=== PATIENT | female | born 2000 | race American Indian/Alaskan Native ===

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

== ENCOUNTER 2020-09-02 17:30 | Emergency (ER) | payer MEDICAID ==
--- NOTE | 2020-09-02 19:32 | Event Note ---
ED Screening Note Date of service: 09/02/20 Time: 19:31 ED Screening Note: 20-year-old female patient presents to the emergency department with complaints of abdominal pain, nausea, vomiting, and diarrhea starting 2 days ago. No known sick contacts. No current steroid or antibiotic use. No recent travel. Pain is localized to the suprapubic area. No history of prior abdominal surgeries. Last menstrual cycle was August 04. General: Awake, appropriately interactive, no acute distress. Neck: Supple. Full range of motion intact. Cardiovascular: Normal peripheral perfusion. Pulmonary: No respiratory distress. Patient is speaking normally without use of accessory muscles. Skin: No apparent rashes or lesions. Neurological: No facial asymmetry. Speech is clear. Follows commands. Patient is alert and oriented. Musculoskeletal: Moves all four extremities spontaneously with normal range of motion. Psych: Cooperative. Appropriate mood and affect. I have greeted and performed a focused rapid initial assessment of this patient. A comprehensive ED assessment and evaluation of the patient, analysis of all test results, and completion of the medical decision-making process will be conducted by additional ED providers. This initial assessment/diagnostic orders/clinical plan/treatment(s) is/are subject to change based on patients health status, clinical progression and re-assessment. Further treatment and workup at subsequent clinical provider's discretion. Patient/guardian urged not to elope from the ED as their condition may be serious if not clinically assessed and managed.
[2020-09-02 20:00] VITALS: BP 122/81
[2020-09-02 20:17] LABS: Basophils % (Auto) 0.5 % (0.0-1.8); Hematocrit 40.2 % (30.3-42.9); Hemoglobin 13.1 gm/dl (10.1-14.3); Lymphocytes % (Auto) 31.3 % (13.4-35.0); Mean Corpuscular HGB Conc 33 % (30-34); Mean Corpuscular Volume 80 fl (79-97); Monocytes # (Auto) 0.2 K/mm3 (0.0-0.8); Monocytes % (Auto) 6.2 % (0.0-7.3); Platelet Count 162 K/mm3 (140-440); Red Cell Distribution Width 14.8 % (13.2-15.2)
[2020-09-02 20:35] LABS: Alanine Aminotransferase 35 units/L (7-56); Albumin 3.9 g/dL (3.9-5); BUN/Creatinine Ratio 13; Blood Urea Nitrogen 12 mg/dL (7-17); Calcium 8.8 mg/dL (8.4-10.2); Hemolysis Index 42
[2020-09-02 21:50] LABS: Bilirubin,Urine NEG (Negative); Blood,Urine LG (Negative); Color,Urine Yellow (Yellow); Mucus,Urine FEW /HPF; Protein,Urine >500 mg/dL (Negative); RBC,Urine < 1.0 /HPF (0.0-6.0); Urobilinogen,Urine < 2.0 mg/dL (<2.0)
[2020-09-02] MEDS ORDERED: SODIUM CHLORIDE 0.9% 1000 ML 1,000 ML IV ONE (22:39)
[2020-09-02] MEDS ORDERED: HYOSCYAMINE SUBL 0.125 MG TAB SL ONE (22:39)
--- NOTE | 2020-09-02 22:50 | Emergency Department Report ---
ED N/V/D HPI - General Chief complaint: Nausea/Vomiting/Diarrhea Stated complaint: STOMACH VIRUS Time Seen by Provider: 09/02/20 21:35 Source: patient Mode of arrival: Ambulatory Limitations: No Limitations - History of Present Illness Initial comments: Dana Saucedo to 3-day history of nausea vomiting diarrhea associated with lower leg pain of unknown etiology states she is able to keep food down but is vomiting a yellow/thin type liquid with a sour acidic taste to the posterior pharynx in the chest region burn MD complaint: nausea, vomiting, diarrhea -: Gradual Description of Vomiting: other (Increased symptoms) Associated Abdominal Pain: No Severity: mild Quality: aching, dull Improves with: none Worsens with: none Associated Symptoms: denies other symptoms - Related Data Previous Rx's Medication Instructions Recorded Last Taken Type Benzonatate [Tessalon Perles] 100 mg PO Q8HR #20 capsule 12/30/19 Unknown Rx Desloratadine/Pseudoephedrine 1 each PO BID #10 tbmp.12hr 12/30/19 Unknown Rx [Clarinex-D 12 Hour Tablet] predniSONE [Deltasone] 20 mg PO QDAY #5 tab 12/30/19 Unknown Rx Hyoscyamine Subl [Levsin Sl 0.125 0.125 mg SL Q6HR PRN #20 tab 09/02/20 Unknown Rx TAB] Ondansetron [Zofran ODT TAB] 8 mg PO Q12HR #14 tab.rapdis 09/02/20 Unknown Rx Albuterol Mdi (or & Nicu Only) 2 puff IH QID PRN #8.5 gram 09/07/20 Unknown Rx [ProAir HFA Inhaler] Cetirizine HCl [All Day Allergy 10 mg PO DAILY 14 Days #14 capsule 09/07/20 Unknown Rx Relief] Fluticasone [Flonase] 1 spray NS QDAY 14 Days #1 bottle 09/07/20 Unknown Rx Hydrocodone/Chlorphen P-Stirex 5 ml PO BID 10 Days #115 ml 09/07/20 Unknown Rx [Tussionex Pennkinetic Susp] Allergies Allergy/AdvReac Type Severity Reaction Status Date / Time No Known Allergies Allergy Unverified 12/30/19 12:15 ED Review of Systems ROS: Stated complaint: STOMACH VIRUS Other details as noted in HPI Comment: All other systems reviewed and negative ED Past Medical Hx - Past Medical History Previous Medical History?: No - Surgical History Past Surgical History?: No - Social History Smoking Status: Never Smoker Substance Use Type: None - Medications Home Medications: Home Medications Medication Instructions Recorded Confirmed Last Taken Type Benzonatate [Tessalon Perles] 100 mg PO Q8HR #20 capsule 12/30/19 Unknown Rx Desloratadine/Pseudoephedrine 1 each PO BID #10 tbmp.12hr 12/30/19 Unknown Rx [Clarinex-D 12 Hour Tablet] predniSONE [Deltasone] 20 mg PO QDAY #5 tab 12/30/19 Unknown Rx Hyoscyamine Subl [Levsin Sl 0.125 0.125 mg SL Q6HR PRN #20 tab 09/02/20 Unknown Rx TAB] Ondansetron [Zofran ODT TAB] 8 mg PO Q12HR #14 tab.rapdis 09/02/20 Unknown Rx Albuterol Mdi (or & Nicu Only) 2 puff IH QID PRN #8.5 gram 09/07/20 Unknown Rx [ProAir HFA Inhaler] Cetirizine HCl [All Day Allergy 10 mg PO DAILY 14 Days #14 capsule 09/07/20 Unknown Rx Relief] Fluticasone [Flonase] 1 spray NS QDAY 14 Days #1 bottle 09/07/20 Unknown Rx Hydrocodone/Chlorphen P-Stirex 5 ml PO BID 10 Days #115 ml 09/07/20 Unknown Rx [Tussionex Pennkinetic Susp] ED Physical Exam - General Limitations: No Limitations General appearance: alert, in no apparent distress - Head Head exam: Present: atraumatic, normocephalic - Eye Eye exam: Present: normal appearance, PERRL, EOMI - ENT ENT exam: Present: mucous membranes moist - Neck Neck exam: Present: normal inspection, full ROM - Respiratory Respiratory exam: Present: normal lung sounds bilaterally. Absent: respiratory distress - Cardiovascular Cardiovascular Exam: Present: regular rate, normal rhythm. Absent: systolic murmur, diastolic murmur, rubs, gallop - GI/Abdominal GI/Abdominal exam: Present: soft, normal bowel sounds. Absent: guarding, rebound, hyperactive bowel sounds, hypoactive bowel sounds - Extremities Exam Extremities exam: Present: normal inspection - Back Exam Back exam: Present: normal inspection - Neurological Exam Neurological exam: Present: alert, oriented X3 - Psychiatric Psychiatric exam: Present: normal affect, normal mood - Skin Skin exam: Present: warm, dry, intact, normal color. Absent: rash ED Course Vital Signs 09/02/20 09/03/20 19:32 03:50 Temperature 98.4 F Pulse Rate 123 H 88 Respiratory 20 17 Rate Blood Pressure 122/81 O2 Sat by Pulse 96 99 Oximetry ED Medical Decision Making - Lab Data Result diagrams: 09/02/20 19:41 09/02/20 19:41 - Medical Decision Making Patient presents to the emergency department with nausea, vomiting, diarrhea, differential diagnosis includes possible acute gastroenteritis. Abdominal examination without peritoneal signs. Currently patient is euvolemic without evidence of dehydration. No evidence of surgical abdomen or other acute medical emergency including bowel obstruction, viscus perforation, vascular catastrophe, appendicitis, cholecystitis at this time. Presentation not consistent with other acute emergent causes of vomiting and diarrhea at this time. No indication for abdominal imaging Plan supportive care, oral/IV rehydration, antiemetics and reassess Critical care attestation.: If time is entered above; I have spent that time in minutes in the direct care of this critically ill patient, excluding procedure time. ED Disposition Clinical Impression: Nausea vomiting and diarrhea Disposition: DC-01 TO HOME OR SELFCARE Is pt being admited?: No Does the pt Need Aspirin: No Condition: Stable Instructions: Diarrhea, Adult, Rotavirus Infection, Adult, Nausea and Vomiting, Adult, Probiotics Prescriptions: Hyoscyamine Subl [Levsin Sl 0.125 TAB] 0.125 mg SL Q6HR PRN #20 tab PRN Reason: abdominal cramps and spasms Ondansetron [Zofran ODT TAB] 8 mg PO Q12HR #14 tab.rapdis Referrals: [facility] [Provider Group] - 3-5 Days PRIMARY [facility]ARE, [Primary Care Provider] - 3-5 Days
[2020-09-03] MEDS ORDERED: HYOSCYAMINE SUBL 0.125 MG TAB ONE (01:12)
== END 2020-09-03 03:50 | disposition home or self-care (01) ==
LOC: ED 17:30
DX: R11.2 Nausea with vomiting, unspecified (principal); R19.7 Diarrhea, unspecified; M79.662 Pain in left lower leg; Z79.899 Other long term (current) drug therapy
CPT/HCPCS: 36415; 80053; 81001; 83690; 83735; 84703; 85025; 96360; 99283; J7030

== ENCOUNTER 2020-09-07 12:43 | Emergency (ER) | payer MEDICAID ==
--- NOTE | 2020-09-07 13:16 | Emergency Department Report ---
- General Chief Complaint: Upper Respiratory Infection Stated Complaint: COUGH PUI?: Yes Time Seen by Provider: 09/07/20 12:54 Source: patient, EMS, old records reviewed Mode of arrival: Ambulatory Limitations: No Limitations - History of Present Illness Initial Comments: Chief complaint:"I need medicines that will work." HPI: This is a 20-year-old female with history of elevated BMI who presents with symptoms of COVID-19 infection. She received a positive Covid 19 test recently. She has been symptomatic for the last 5 days. She has been to the emergency department several times for persistent symptoms of nausea diarrhea cough and wheezing. She also wants medication for her loss of taste or smell. She has been prescribed Zofran and hyoscyamine. Her relatives have been prescribed Flonase Tessalon Perls albuterol and Zyrtec. Her relatives symptoms seem to be managed better with these prescriptions. Patient arrived via EMS. MD Complaint: cough, other (Wheezing,. Loss of taste or smell. Nausea diarrhea.) Severity: mild Consistency: constant Improves With: nothing Worsens With: nothing - Related Data Previous Rx's Medication Instructions Recorded Last Taken Type Benzonatate [Tessalon Perles] 100 mg PO Q8HR #20 capsule 12/30/19 Unknown Rx Desloratadine/Pseudoephedrine 1 each PO BID #10 tbmp.12hr 12/30/19 Unknown Rx [Clarinex-D 12 Hour Tablet] predniSONE [Deltasone] 20 mg PO QDAY #5 tab 12/30/19 Unknown Rx Hyoscyamine Subl [Levsin Sl 0.125 0.125 mg SL Q6HR PRN #20 tab 09/02/20 Unknown Rx TAB] Ondansetron [Zofran ODT TAB] 8 mg PO Q12HR #14 tab.rapdis 09/02/20 Unknown Rx Albuterol Mdi (or & Nicu Only) 2 puff IH QID PRN #8.5 gram 09/07/20 Unknown Rx [ProAir HFA Inhaler] Cetirizine HCl [All Day Allergy 10 mg PO DAILY 14 Days #14 capsule 09/07/20 Unknown Rx Relief] Fluticasone [Flonase] 1 spray NS QDAY 14 Days #1 bottle 09/07/20 Unknown Rx Hydrocodone/Chlorphen P-Stirex 5 ml PO BID 10 Days #115 ml 09/07/20 Unknown Rx [Tussionex Pennkinetic Susp] Allergies Allergy/AdvReac Type Severity Reaction Status Date / Time No Known Allergies Allergy Unverified 12/30/19 12:15 ED Review of Systems ROS: Stated complaint: COUGH Other details as noted in HPI Comment: All other systems reviewed and negative Constitutional: denies: chills, fever, malaise Respiratory: cough, shortness of breath Cardiovascular: denies: chest pain, palpitations Gastrointestinal: denies: abdominal pain, nausea, vomiting ED Past Medical Hx - Past Medical History Previous Medical History?: No - Surgical History Past Surgical History?: No - Social History Smoking Status: Never Smoker Substance Use Type: None - Medications Home Medications: Home Medications Medication Instructions Recorded Confirmed Last Taken Type Benzonatate [Tessalon Perles] 100 mg PO Q8HR #20 capsule 12/30/19 Unknown Rx Desloratadine/Pseudoephedrine 1 each PO BID #10 tbmp.12hr 12/30/19 Unknown Rx [Clarinex-D 12 Hour Tablet] predniSONE [Deltasone] 20 mg PO QDAY #5 tab 12/30/19 Unknown Rx Hyoscyamine Subl [Levsin Sl 0.125 0.125 mg SL Q6HR PRN #20 tab 09/02/20 Unknown Rx TAB] Ondansetron [Zofran ODT TAB] 8 mg PO Q12HR #14 tab.rapdis 09/02/20 Unknown Rx Albuterol Mdi (or & Nicu Only) 2 puff IH QID PRN #8.5 gram 09/07/20 Unknown Rx [ProAir HFA Inhaler] Cetirizine HCl [All Day Allergy 10 mg PO DAILY 14 Days #14 capsule 09/07/20 Unknown Rx Relief] Fluticasone [Flonase] 1 spray NS QDAY 14 Days #1 bottle 09/07/20 Unknown Rx Hydrocodone/Chlorphen P-Stirex 5 ml PO BID 10 Days #115 ml 09/07/20 Unknown Rx [Tussionex Pennkinetic Susp] ED Physical Exam - General Limitations: No Limitations General appearance: alert, in no apparent distress - Head Head exam: Present: atraumatic, normocephalic - Eye Eye exam: Present: normal appearance - ENT ENT exam: Present: mucous membranes moist - Neck Neck exam: Present: normal inspection, full ROM - Respiratory Respiratory exam: Present: normal lung sounds bilaterally. Absent: respiratory distress, wheezes, rales, rhonchi - Cardiovascular Cardiovascular Exam: Present: normal rhythm, tachycardia. Absent: systolic murmur, diastolic murmur, rubs, gallop - GI/Abdominal GI/Abdominal exam: Present: soft, normal bowel sounds. Absent: distended, tenderness, guarding, rebound - Extremities Exam Extremities exam: Present: normal inspection - Neurological Exam Neurological exam: Present: alert, oriented X3 - Psychiatric Psychiatric exam: Present: normal affect, normal mood - Skin Skin exam: Present: warm, dry, intact, normal color. Absent: rash ED Course Vital Signs 09/07/20 09/07/20 09/07/20 13:07 13:13 13:15 Temperature 100.7 F H Pulse Rate 128 H Respiratory 24 Rate Blood Pressure 135/70 [Right] O2 Sat by Pulse 94 Oximetry ED Medical Decision Making - Medical Decision Making COVID-19 infection, confirmed with outpatient testing. Patient does have frequent cough fever and associated mild tachycardia. She denies chest pain or severe shortness of breath to indicate complications such as severe pneumonia or pulmonary embolism. Patient given return precautions. I have prescribed Tussionex, albuterol MDI, cetirizine and Flonase. Patient given referral to outpatient medicine physician. Patient given written verbal education regarding COVID-19. Patient given p.o. Zofran and Tylenol with codeine in the emergency department. Critical care attestation.: If time is entered above; I have spent that time in minutes in the direct care o f this critically ill patient, excluding procedure time. ED Disposition Clinical Impression: COVID-19 Disposition: DC-01 TO HOME OR SELFCARE Is pt being admited?: No Does the pt Need Aspirin: No Condition: Stable Instructions: COVID-19 Prescriptions: Cetirizine HCl [All Day Allergy Relief] 10 mg PO DAILY 14 Days #14 capsule Fluticasone [Flonase] 1 spray NS QDAY 14 Days #1 bottle Albuterol Mdi (or & Nicu Only) [ProAir HFA Inhaler] 2 puff IH QID PRN #8.5 gram PRN Reason: Shortness Of Breath Hydrocodone/Chlorphen P-Stirex [Tussionex Pennkinetic Susp] 5 ml PO BID 10 Days #115 ml
[2020-09-07] MEDS ORDERED: ONDANSETRON 4 MG ODT TAB PO ONE (13:26)
[2020-09-07] MEDS ORDERED: ACETAMINOPHEN W/CODEINE 300-30 MG TAB PO ONE (13:26)
[2020-09-07 13:45] VITALS: BP 154/68
== END 2020-09-07 14:02 | disposition home or self-care (01) ==
LOC: ED 12:43
DX: U07.1 COVID-19 (principal); R05 Cough; R11.0 Nausea; R19.7 Diarrhea, unspecified
CPT/HCPCS: 99283; Q0162

== ENCOUNTER 2020-09-15 09:12 | Emergency (ER) | payer MEDICAID ==
[2020-09-15] MEDS ORDERED: DEXTROSE 50% IN WATER (25GM) 50 ML SYRINGE IV ONE (09:29)
--- NOTE | 2020-09-15 09:48 | Emergency Department Report ---
HPI - General Chief Complaint: Cardiac Arrest/CPR PUI?: Yes Time Seen by Provider: 09/15/20 09:37 - HPI HPI: 20-year-old female with no known past medical history is brought in by EMS in cardiac arrest. According to the EMS report, the patient was diagnosed with COVID-19 a few days ago. This morning the patient was moaning, altered, and vomited. She became unresponsive and was down unresponsive for approximately 10 minutes prior to EMS arrival, when EMS arrived she was pulseless and the initial rhythm was asystole. CPR was started and ACLS protocol was followed. She was given 2 doses of epi and a Judson airway was inserted. EMS says CPR has been in progress for approximately 30 minutes. No blood sugar was checked. Apparently, the patient was recently diagnosed with COVID-19. Further details of the HPI are limited due to the patient's current clinical condition. ED Past Medical Hx - Past Medical History Previous Medical History?: Yes Additional medical history: COVID-19 - Social History Smoking Status: Never Smoker Substance Use Type: None - Medications Home Medications: Home Medications Medication Instructions Recorded Confirmed Last Taken Type Benzonatate [Tessalon Perles] 100 mg PO Q8HR #20 capsule 12/30/19 Unknown Rx Desloratadine/Pseudoephedrine 1 each PO BID #10 tbmp.12hr 12/30/19 Unknown Rx [Clarinex-D 12 Hour Tablet] predniSONE [Deltasone] 20 mg PO QDAY #5 tab 12/30/19 Unknown Rx Hyoscyamine Subl [Levsin Sl 0.125 0.125 mg SL Q6HR PRN #20 tab 09/02/20 Unknown Rx TAB] Ondansetron [Zofran ODT TAB] 8 mg PO Q12HR #14 tab.rapdis 09/02/20 Unknown Rx Albuterol Mdi (or & Nicu Only) 2 puff IH QID PRN #8.5 gram 09/07/20 Unknown Rx [ProAir HFA Inhaler] Cetirizine HCl [All Day Allergy 10 mg PO DAILY 14 Days #14 capsule 09/07/20 Unknown Rx Relief] Fluticasone [Flonase] 1 spray NS QDAY 14 Days #1 bottle 09/07/20 Unknown Rx Hydrocodone/Chlorphen P-Stirex 5 ml PO BID 10 Days #115 ml 09/07/20 Unknown Rx [Tussionex Pennkinetic Susp] ED Review of Systems ROS: Stated complaint: CARDIAC ARREST/COVID POS Other details as noted in HPI Comment: Unobtainable due to pts medical conditions Physical Exam - Physical Exam General: GENERAL: Obese young female. Unresponsive and obtunded. HEAD: Normocephalic. No obvious signs of trauma. ENT: Judson airway is in place and there is some vomitus seen coming from the mouth which was suctioned. EYES: Pupils are fixed and dilated bilaterally. NECK: Trachea is midline. LUNGS: Bilateral breath sounds with bag valve mask ventilation. CARDIOVASCULAR: CPR in progress. VASCULAR: No palpable pulses. The entire body is extremely cold to the touch. Cap refill ~4 seconds ABDOMEN: Abdomen is nondistended and soft. SKIN: Skin is very cool and dry. NEURO: Unresponsive. MUSCULOSKELETAL: No obvious deformities. - IO Right Tibia Consent Obtained: emergent situation IO Instrument Used to Penetrate the Cortex: standard IO needle Patient Tolerated Procedure: no complications Complications: none Left Tibia Consent Obtained: emergent situation IO Instrument Used to Penetrate the Cortex: standard IO needle Complications: non-functional line ED Medical Decision Making - Medical Decision Making 20-year-old female who was apparently recently diagnosed with COVID-19 brought in by EMS in cardiac arrest. Apparently she was moaning this morning and vomited and then became unresponsive. She was down for 10-15 minutes at home without spontaneous breathing before EMS arrived. Her initial rhythm was asystole. CPR has been in progress and ACLS protocol was followed. EMS has been in transport for 30 minutes. She was given epi per ACLS protocol but she never regained a pulse or rhythm. Upon arrival to our emergency department, the patient is pulseless and unresponsive. Apparently no glucose was obtained by EMS so I ordered that immediately. The patient had access in her right arm which was lost shortly after arrival. An IO was attempted into the left tibia but was insufficient length. Another IO was placed into the right tibia for IV access. IV access was also regained in the right AC. Fingerstick glucose revealed sugar too low to register. She was given 1 amp of D50 with improvement in her glucose to 30 on recheck. An additional amp of D50 was given. Her initial rhythm upon arrival to the emergency department was PEA. ACLS protocol was followed and the patient was administered cardiac epi, calcium, and 1 amp of bicarb x2. At one point, the patient's rhythm changed to V. fib and she was defibrillated at 200 J. 300 mg of IV amiodarone was administered. 2 g of magnesium was administered. Cardiac epi continued to be administered per ACLS protocol. The patient was in V. fib again on repeat pulse/rhythm check and was defibrillated again. Unfortunately, despite all of our resuscitative efforts, the patient never regained a pulse and time of was called at 0935. The rhythm at that time was asystole. Bedside ultrasound was performed and revealed no cardiac activity. Critical care attestation.: If time is entered above; I have spent that time in minutes in the direct care of this critically ill patient, excluding procedure time. ED Disposition Clinical Impression: COVID-19, Cardiac arrest Disposition: DC-20 Is pt being admited?: No Referrals: PRIMARY CARE, [Primary Care Provider] - 3-5 Days
== END 2020-09-15 17:25 ==
LOC: ED 09:12
DX: I46.9 Cardiac arrest, cause unspecified (principal); U07.1 COVID-19
CPT/HCPCS: 82962; 92950; 99285